=== PATIENT | female | born 1975 | race American Indian/Alaskan Native ===

== ENCOUNTER 2020-08-09 12:11 | Emergency (ER) | payer SELFPAY ==
[2020-08-09 12:33] VITALS: BP 121/79
--- NOTE | 2020-08-09 13:03 | Emergency Department Report ---
ED Back Pain/Injury HPI - General Chief Complaint: Back Pain/Injury Stated Complaint: BACK PAIN Time Seen by Provider: 08/09/20 12:44 Source: patient Limitations: No Limitations - History of Present Illness Initial Comments: pt is a 45 yo female who presents to the ED with c/o upper back pain that began two nights ago once she got off work. she states she works in the [employer] and frequently lifts heavy boxes of chicken. she states she believes she may be picking up the boxes incorrectly. she denies any fall or injury. she denies any fever, n/v/d, urinary symptoms, SOB, CP, numbness, weakness, bowel or bladder incontinence. no pmhx. no allergies to meds. she states she did take aleve over the counter with some relief. she states her pain is worse with bending forward and better with leaning back. - Related Data Previous Rx's Medication Instructions Recorded Last Taken Type Menthol/Camphor [Gillett Almond 1 applicatio TP BID #18 oint...g. 08/09/20 Unknown Rx Ointment] Naproxen [EC-Naprosyn] 500 mg PO BID PRN #20 tablet. 08/09/20 Unknown Rx methOCARBAMOL [Robaxin TAB] 500 mg PO BID PRN #20 tab 08/09/20 Unknown Rx Allergies Allergy/AdvReac Type Severity Reaction Status Date / Time No Known Allergies Allergy Unverified 08/09/20 12:31 ED Review of Systems ROS: Stated complaint: BACK PAIN Other details as noted in HPI Comment: All other systems reviewed and negative ED Past Medical Hx - Past Medical History Previous Medical History?: No - Surgical History Past Surgical History?: No - Medications Home Medications: Home Medications Medication Instructions Recorded Confirmed Last Taken Type Menthol/Camphor [Gillett Almond 1 applicatio TP BID #18 oint...g. 08/09/20 Unknown Rx Ointment] Naproxen [EC-Naprosyn] 500 mg PO BID PRN #20 tablet. 08/09/20 Unknown Rx methOCARBAMOL [Robaxin TAB] 500 mg PO BID PRN #20 tab 08/09/20 Unknown Rx ED Physical Exam - General Limitations: No Limitations General appearance: alert, in no apparent distress - Head Head exam: Present: atraumatic, normocephalic - Eye Eye exam: Present: normal appearance - ENT ENT exam: Present: mucous membranes moist - Neck Neck exam: Present: normal inspection, full ROM. Absent: tenderness - Respiratory Respiratory exam: Present: normal lung sounds bilaterally. Absent: respiratory distress, wheezes, rales, rhonchi, stridor, chest wall tenderness, accessory muscle use, decreased breath sounds, prolonged expiratory - Cardiovascular Cardiovascular Exam: Present: regular rate, normal rhythm, normal heart sounds. Absent: systolic murmur, diastolic murmur, rubs, gallop - Back Exam Back exam: Present: normal inspection, full ROM, paraspinal tenderness (bilateral T-spine paraspinal muscular ttp, no c-spine, T-spine, or L-spine ttp, no step offs, no deformities, no crepitus, no ecchymosis). Absent: vertebral tenderness - Neurological Exam Neurological exam: Present: alert, oriented X3, CN II-XII intact, normal gait. Absent: motor sensory deficit - Psychiatric Psychiatric exam: Present: normal affect, normal mood - Skin Skin exam: Present: warm, dry, intact ED Course Vital Signs 08/09/20 12:32 Temperature 98.2 F Pulse Rate 71 Respiratory 18 Rate Blood Pressure 121/79 O2 Sat by Pulse 100 Oximetry ED Medical Decision Making - Medical Decision Making pt is a 45 yo female who presents to the ED with c/o upper back pain that began two nights ago once she got off work. she states she works in the [employer] and frequently lifts heavy boxes of chicken. she states she believes she may be picking up the boxes incorrectly. she denies any fall or injury. she denies any fever, n/v/d, urinary symptoms, SOB, CP, numbness, weakness, bowel or bladder incontinence. no pmhx. no allergies to meds. she states she did take aleve over the counter with some relief. she states her pain is worse with bending forward and better with leaning back. vitals are normal. on exam: bilateral T-spine paraspinal muscular ttp, no c-spine, T-spine, or L-spine ttp, no step offs, no deformities, no crepitus, no ecchymosis, no focal neuro deficits. Examination appears most consistent with thoracic strain. She has no red flag warning signs of back pain, no trauma, no unexplained weight loss, no fever, no IV drug use, no neuro deficits, no steroid use, no history of cancer. No clinical signs of aortic dissection. Patient given prescription for naproxen, Robaxin, Gillett balm ointment. Advised patient please use medication as prescribed.do not drive or operate heavy machinery while taking muscle relaxer robaxin. may use ice pack, heating pad, rest, epsom salt bath. follow up with a primary care doctor. follow up with an orthopedic doctor. return to the emergency room for any new or worsening symptoms. Critical care attestation.: If time is entered above; I have spent that time in minutes in the direct care of this critically ill patient, excluding procedure time. ED Disposition Clinical Impression: Back pain Qualifiers: Back pain location: thoracic back pain Chronicity: acute Back pain laterality: bilateral Qualified Code(s): M54.6 - Pain in thoracic spine Disposition: - TO HOME OR SELFCARE Is pt being admited?: No Does the pt Need Aspirin: No Condition: Stable Instructions: Thoracic Strain Additional Instructions: please use medication as prescribed.do not drive or operate heavy machinery while taking muscle relaxer robaxin. may use ice pack, heating pad, rest, epsom salt bath. follow up with a primary care doctor. follow up with an orthopedic doctor. return to the emergency room for any new or worsening symptoms. Prescriptions: Naproxen [EC-Naprosyn] 500 mg PO BID PRN #20 tablet.dr PRN Reason: pain methOCARBAMOL [Robaxin TAB] 500 mg PO BID PRN #20 tab PRN Reason: pain Menthol/Camphor [Gillett Almond Ointment] 1 applicatio TP BID #18 oint...g. Referrals: MARLY GATICA MD [Staff Physician] - 2-3 Days [facility] [Provider Group] - 2-3 Days [facility] [Provider Group] - 2-3 Days Forms: Work/School Release Form(ED) Time of Disposition: 13:01 Print Language: WELSH
== END 2020-08-09 13:45 | disposition home or self-care (01) ==
LOC: ED 12:11
DX: M54.6 Pain in thoracic spine (principal); Z79.899 Other long term (current) drug therapy
CPT/HCPCS: 99281